=== PATIENT | male | born 1970 | race Caucasian/White ===

== ENCOUNTER 2018-12-19 02:14 | Emergency (ER) | payer BC ==
[~2018-12-19] VITALS: Ht 177.8 cm; Wt 104.3 kg
--- NOTE | 2018-12-19 02:25 | NUR ---
Patient ambulated with stable gait. A/Ox4. Speech clear, speaks in complete sentences. No neuro deficits. Patient reports having pain upon inspiration, pain primarily in right chest wall and right shoulder. Denies any n/v/d.
[2018-12-19] MEDS ORDERED: IV NORMAL SALINE 1000 ML BAG IV ONE (02:45)
[2018-12-19 02:52] LABS: BASOPHILS # (AUTO) 0.1 K/uL (0.0-8.0); BASOPHILS % (AUTO) 1.1 % (0.0-2.0); EOSINOPHILS # (AUTO) 0.2 K/uL (0.0-0.7); EOSINOPHILS % (AUTO) 1.3 % (0.0-7.0); HEMATOCRIT 44.2 % (36.7-47.1); HEMOGLOBIN 14.4 g/dL (12.5-16.3); LYMPHOCYTES # (AUTO) 2.9 K/uL (20.0-40.0); LYMPHOCYTES % (AUTO) 22.2 % (20.5-51.5); MEAN CORPUSCULAR HEMOGLOBIN 26.5 uug (23.8-33.4); MEAN CORPUSCULAR HGB CONC 33 g/dL (32.5-36.3); MEAN CORPUSCULAR VOLUME 81.5 fL (73.0-96.2); MONOCYTES # (AUTO) 1.3 K/uL (2.0-10.0); MONOCYTES % (AUTO) 9.7 % (0.0-11.0); NEUTROPHILS # (AUTO) 8.7 K/uL (1.8-8.9); NEUTROPHILS % (AUTO) 65.7 % (38.5-71.5); PLATELET COUNT (AUTO) 241 K/uL (152-348); RED BLOOD CELL COUNT(AUTO) 5.42 MIL/uL (4.06-5.63); WHITE BLOOD COUNT (AUTO) 13.3 K/uL (3.6-10.2)
[2018-12-19 03:01] LABS: POTASSIUM 3.7 mmol/L (3.5-5.1)
[2018-12-19 03:06] LABS: BILIRUBIN,DIRECT 0.1 mg/dL (0.0-0.2); BILIRUBIN,TOTAL 0.3 mg/dL (0.2-1.0); TOTAL PROTEIN, SERUM 7.2 g/dL (6.4-8.2)
[2018-12-19] MEDS ORDERED: diphenhydrAMINE 50 MG/1 ML VIAL ONE (03:13)
[2018-12-19] MEDS ORDERED: diphenhydrAMINE 50 MG/1 ML VIAL IV ONE (03:15)
[2018-12-19] MEDS ORDERED: IOHEXOL 350 100 ML INFUS..BTL ONE (03:16)
[2018-12-19] MEDS ORDERED: IV NORMAL SALINE 250 ML IV ONE (03:16)
[2018-12-19] MEDS ORDERED: SWABABLE VALVE TRANSFER SET EA MC ONE (03:16)
[2018-12-19] MEDS ORDERED: LIDOCAINE 5% PATCH TD ONE ×2 (04:11→04:15)
--- NOTE | 2018-12-19 04:20 | NUR ---
Patient discharged to home in stable conditon. Written and verbal after care instructions given. Patient verbalizes understanding of instructions. Patient ambulated with stable gait.
[2018-12-19 06:13] VITALS: BP 135/69
== END 2018-12-19 06:19 | disposition home or self-care (01) ==
LOC: ER 02:21
DX: M94.0 Chondrocostal junction syndrome [Tietze] (principal); Z90.49 Acquired absence of other specified parts of digestive tract; Z91.013 Allergy to seafood
CPT/HCPCS: 36415; 71275; 80048; 80076; 84484; 85025; 93005; 96374; 99284; J1200; Q9967; 70030-TC; A4663; J7030; J7050